=== PATIENT | male | born 1945 | race Hispanic/Latino ===

== ENCOUNTER 2019-01-30 07:23 | Day surgery (SDC) | payer MEDICARE ==
[2019-01-30 07:58] VITALS: BMI 26.6
[2019-01-30] MEDS ORDERED: Sodium Chloride 0.9% 1,000 ML IV SCH (08:45)
[2019-01-30] MEDS ORDERED: Propofol 10 mg/ml Inj (20 ML) ONE ×4 (08:47→09:43)
[2019-01-30] MEDS ORDERED: Simethicone 40 mg/0.6 ml Liquid (30 ml) ONE (11:25)
[2019-01-30] MEDS ORDERED: Simethicone 40 mg/0.6 ml Liquid (30 ml) PO ONE (11:30)
[2019-01-30 13:23] VITALS: BP 136/53; PULSE 62; RESP 15; TEMP 98; O2SAT 98
== END 2019-01-30 13:00 | disposition home or self-care (01) ==
LOC: ENDO 07:23
PROVIDERS: ATTEND Specialist
DX: C15.5 Malignant neoplasm of lower third of esophagus (principal); K22.2 Esophageal obstruction; K62.1 Rectal polyp; D12.4 Benign neoplasm of descending colon; D12.5 Benign neoplasm of sigmoid colon; D12.3 Benign neoplasm of transverse colon; K64.8 Other hemorrhoids; K55.20 Angiodysplasia of colon without hemorrhage; I25.10 Atherosclerotic heart disease of native coronary artery without angina pectoris; E03.9 Hypothyroidism, unspecified; I49.9 Cardiac arrhythmia, unspecified; Z95.0 Presence of cardiac pacemaker; Z85.820 Personal history of malignant melanoma of skin
CPT/HCPCS: 43233; 43239; 45381; 45385; 88305; 88312; 88342; J2001; J2704; J3010; J7030

== ENCOUNTER 2019-02-13 11:00 | Day surgery (SDC) | payer MEDICARE ==
[2019-02-12 09:48] VITALS: BMI 24.9
[2019-02-13 13:35] LABS: BASO # 0.03 K/mm3 (0.0-2.0); BASO % 0.4 % (0.0-3.0); EOS # 0.1 (0.0-0.7); HEMOGLOBIN 14.9 g/dL (14.0-18.0); LYMPH # 1.7 (1.2-3.4); MEAN CELL VOLUME 91.9 fl (80.0-105.0); MEAN CORPUSCULAR HEMOGLOBIN 30.3 pg (25.0-35.0); MEAN PLATELET VOLUME 11.2 fl (7.0-11.0); MONO # 0.4 (0.1-0.6); MONO % 5.3 % (1.0-6.0); RBC 4.92 10^6/uL (3.5-6.1); WHITE BLOOD COUNT 8.2 10^3/uL (4.5-11.0)
[2019-02-13 13:41] LABS: CALCIUM 9.8 mg/dL (8.4-10.5)
[2019-02-13 13:43] LABS: INR 1.11; PARTIAL THROMBOPLASTIN TIME 35.2 Seconds (26.9-38.3); PROTHROMBIN TIME 12.5 SECONDS (9.4-12.5)
[2019-02-13] MEDS ORDERED: Lidocaine PF 2% (5 ml) Inj (For Cardiac Arrhy) ONE (14:19)
[2019-02-13] MEDS ORDERED: Iodixanol 320 MG/ML 100 ML BOTTLE IV ONE (14:20)
--- NOTE | 2019-02-13 15:22 | RAD ---
Date of service: 02/13/2019 HISTORY: dobhoff placement COMPARISON: No prior. TECHNIQUE: 1 view obtained. FINDINGS: LUNGS: No active pulmonary disease. PLEURA: No significant pleural effusion identified, no pneumothorax apparent. CARDIOVASCULAR: Aortic calcification Normal cardiac size. No pulmonary vascular congestion. OSSEOUS STRUCTURES: No significant abnormalities. VISUALIZED UPPER ABDOMEN: Normal. OTHER FINDINGS: None. IMPRESSION: The Dobbhoff tube can be seen below the level of the diaphragm. The tip of the tube is not visualized
[2019-02-13] MEDS ORDERED: Midazolam 2 MG/2 ML VIAL ONE ×2 (15:23→15:29)
[2019-02-13 16:45] VITALS: BP 105/49; PULSE 61; RESP 20; TEMP 97.4; O2SAT 97
[2019-02-13] MEDS ORDERED: Oxycodone/Acetaminophen 5/325 mg Tab PO PRN (17:03)
[2019-02-13] MEDS ORDERED: Sodium Chloride 0.45% 1,000 ML IV SCH (17:15)
--- NOTE | 2019-02-13 17:47 | VASCULAR ---
Date of service: 02/13/2019 PROCEDURE: Percutaneous gastrostomy tube placement HISTORY: Adenocarcinoma GE junction. Cachexia and dysphagia. Unable to place endoscopic feeding tube. COMPARISON: TECHNIQUE: The relative risks and indications of the procedure explained the patient and his daughter. A nasogastric tube could not be placed. Eventually a Dobbhoff tube was placed in the antrum of the stomach. The patient was placed supine on the arteriogram table and the stomach insufflated with air through the Dobbhoff tube. Subxiphoid region was prepped and draped usual sterile fashion. Conscious sedation monitoring were provided throughout the procedure by a nurse. Two placed was selected involving the body of the stomach. The skin and soft tissues were anesthetized 1 percent xylocaine. An 18 gauge needle was advanced into the body of the stomach. Air was aspirated. A 0.035 support wire was coiled within stomach. Sequential dilatation was performed subsequent placement Of 14 Persian pigtail gastrostomy tube in the antrum of the stomach. Position was confirmed with injection of contrast. The tube was flushed and secured. Patient tolerated the procedure well P FINDINGS: IMPRESSION: 1. Fluoroscopically placed gastrostomy tube as described above.
== END 2019-02-13 17:30 | disposition home or self-care (01) ==
LOC: SDSVAS 11:00
PROVIDERS: ATTEND Radiology Vascular & Interventional Radiology
DX: C16.0 Malignant neoplasm of cardia (principal); R13.10 Dysphagia, unspecified; R64 Cachexia; Z68.24 Body mass index [BMI] 24.0-24.9, adult
CPT/HCPCS: 36415; 49440; 71045; 80048; 85025; 85610; 85730; 99152; C1725; C1729; C1769 ×2; J1644; J2250; J2405; J3010; J7030; Q9967